=== PATIENT | female | born 1935 | race Caucasian/White ===

== ENCOUNTER 2016-10-03 18:39 | Emergency (ER) | payer MEDICARE, OTHER ==
[~2016-10-03] VITALS: Ht 160 cm; Wt 70.9 kg
[~2016-10-03 18:39] MED LIST: ATOR10TA65 PO; IRBE150T19 PO; [UNRECOGNIZED DRUG - CODE] MC
[2016-10-03 19:18] VITALS: Ht 160 cm; Wt 70.9 kg
[2016-10-03] MEDS ORDERED: morphine 4 MG/ML VIAL IV STA (22:15)
[2016-10-03] MEDS ORDERED: DICL50TA11 PO (22:15)
[2016-10-03] MEDS ORDERED: ONDANSETRON 4 MG INJ IV STA (22:15)
[2016-10-03] MEDS ORDERED: SOD CHLORIDE 0.9% 500 ML IV STA (22:15)
[2016-10-03 22:50] LABS: ADD SCAN DIFF NO
[2016-10-03 22:56] LABS: BASOPHILS % 0.3 % (0.0-2.0); EOSINOPHILS % 0.6 % (0.0-7.0); HEMATOCRIT 38.3 % (37.0-47.0); HEMOGLOBIN 12.9 g/dl (12.0-16.0); LYMPHOCYTES # 1.5 10^3/ul (0.8-2.9); LYMPHOCYTES % 22.9 % (15.0-51.0); MEAN CORPUSCULAR HEMOGLOBIN 29.3 pg (29.0-33.0); MEAN CORPUSCULAR HGB CONC 33.7 g/dl (32.0-37.0); MEAN PLATELET VOLUME 10.5 fl (7.4-10.4); MONOCYTE # 0.5 10^3/ul (0.3-0.9); MONOCYTES % 6.8 % (0.0-11.0); NEUTROPHIL # 4.6 10^3/ul (1.6-7.5); NEUTROPHILS % 69.2 % (39.0-77.0); PLATELET COUNT 147 10^3/UL (140-415); RED CELL DISTRIBUTION WIDTH 13.6 % (11.5-14.5); WHITE BLOOD COUNT 6.6 10^3/ul (4.8-10.8)
--- NOTE | 2016-10-03 22:59 | RADRPT ---
PROCEDURE: XR Chest. CLINICAL INDICATION: Chest pain and headache TECHNIQUE: AP Portable chest. COMPARISON: 06/17/2013 chest x-ray FINDINGS: The soft tissues and bones are remarkable for thoracic spondylosis. Multiple EKG leads is superimpos ed over the chest wall. No focal infiltrates, masses, or effusions are noted. The mediastinum and heart are remarkable for normal size heart and mild vascular calcifications of the thoracic aorta.. No pneumothorax is present. IMPRESSION: 1. No radiographic evidence for acute cardiopulmonary disease 2. Mild atherosclerotic vascular disease and normal size heart. RPTAT: HDC .Sejal Marcelino MD, MD Date Time Electronically viewed and signed by .Sejal Marcelino MD, on 10/03/2016 22:59 .C/
[2016-10-03] MEDS ORDERED: hydrALAzine 20 MG INJ IV ONE (23:00)
[2016-10-03 23:06] LABS: CHLORIDE 96 mmol/L (97-110); POTASSIUM 4.2 mmol/L (3.5-5.1); SODIUM 138 mmol/L (135-144)
[2016-10-03 23:09] LABS: ANION GAP 16 (8-16); BLOOD UREA NITROGEN 15 mg/dl (7-20); CARBON DIOXIDE 30 mmol/L (21-31); CREATININE 0.69 mg/dl (0.44-1.00); GLUCOSE 124 mg/dl (70-220)
[2016-10-03 23:10] LABS: CALCIUM 9.5 mg/dl (8.4-10.2)
[2016-10-03 23:11] LABS: INR 1.09; PROTIME 14.1 Sec (12.2-14.2); PT RATIO 1.1
[2016-10-03 23:12] LABS: PARTIAL THROMBOPLASTIN TIME 27.8 Sec (25.0-35.0)
[2016-10-03 23:22] LABS: TROPONIN-I < 0.012 ng/ml (0.00-0.12)
--- NOTE | 2016-10-04 00:38 | ERD ---
ER Documentation Chief Complaint Date/Time DATE: 10/04/16 TIME: 00:36 Chief Complaint hx htn and took meds but continues to have high bp and headache HPI Female comes in with elevated blood pressure. She says she has also had a mild headache. No nausea no vomiting no chills. Nonfocal neurological. No other current complaints. ROS All systems reviewed and are negative except as per history of present illness. Medications Home Meds Reported Medications Diclofenac Sodium* (Diclofenac Sodium*) 50 Mg Tablet.dr, 50 MG PO DAILY, #30 TAB 10/03/16 Irbesartan* (Avapro*) 150 Mg Tablet, 150 MG PO BID 06/17/13 Atorvastatin Calcium (Atorvastatin Calcium) 10 Mg Tab, 10 PO DAILY 06/17/13 Discontinued Reported Medications Diclofenac Sodium (Diclofenac Sodium) 25 Gm Powder, 50 MG MC DAILY 06/17/13 Allergies Allergies: Coded Allergies: No Known Allergy (Unverified , 10/03/16) PMhx/Soc History of Surgery: Yes (LEFT BENIGN TUMOR REMOVAL) Anesthesia Reaction: No Hx Neurological Disorder: No Hx Respiratory Disorders: No Hx Psychiatric Problems: No Hx Alcohol Use: No Hx Substance Use: No Hx Tobacco Use: No Smoking Status: Never smoker Physical Exam Vitals Vital Signs Date Time Temp Pulse Resp B/P Pulse Ox O2 Delivery O2 Flow Rate FiO2 10/03/16 23:30 97.0 70 20 128/65 95 Room Air 10/03/16 22:12 69 20 158/82 95 Room Air 10/03/16 19:18 96.8 66 16 198/86 97 Physical Exam Const: [] Head: Atraumatic Eyes: Normal Conjunctiva ENT: Normal External Ears, Nose and Mouth. Neck: Full range of motion..~ No meningismus. Resp: Clear to auscultation bilaterally Cardio: Regular rate and rhythm, no murmurs Abd: Soft, non tender, non distended. Normal bowel sounds Skin: No petechiae or rashes Back: No midline or flank tenderness Ext: No cyanosis, or edema Neur: Awake and alert Psych: Normal Mood and Affect Result Diagram: 10/03/16221510/03/162215 Results 24 hrs Laboratory Tests Test 10/03/16 22:16 Activated Partial Thromboplast Time 27.8Sec Anion Gap 16 Basophils # 0.010^3/ul Basophils % 0.3% Blood Urea Nitrogen 15mg/dl Calcium Level 9.5mg/dl Carbon Dioxide Level 30mmol/L Chloride Level 96mmol/L Creatinine 0.69mg/dl Eosinophils # 0.010^3/ul Eosinophils % 0.6% Glucose Level 124mg/dl Hematocrit 38.3% Hemoglobin 12.9g/dl INR International Normalized Ratio 1.09 Lymphocytes # 1.510^3/ul Lymphocytes % 22.9% Mean Corpuscular Hemoglobin 29.3pg Mean Corpuscular Hemoglobin Concent 33.7g/dl Mean Corpuscular Volume 87.0fl Mean Platelet Volume 10.5fl Monocytes # 0.510^3/ul Monocytes % 6.8% Neutrophils # 4.610^3/ul Neutrophils % 69.2% Nucleated Red Blood Cells # 0.010^3/ul Nucleated Red Blood Cells % 0.0/100WBC Platelet Count 73591^3/UL Potassium Level 4.2mmol/L Prothrombin Time 14.1Sec Prothrombin Time Ratio 1.1 Red Blood Count 4.4010^6/ul Red Cell Distribution Width 13.6% Sodium Level 138mmol/L Troponin I < 0.012ng/ml White Blood Count 6.610^3/ul Current Medications Medications (Trade) Dose Ordered Sig/Severo Route PRN Reason Start Time Stop Time Status Last Admin Dose Admin Sodium Chloride (NS) 500 ml @ 500 mls/hr Q1H STAT IV 10/03/16 22:15 10/03/16 23:14 DC 10/03/16 22:39 Ondansetron HCl (Zofran Inj) 4 mg ONCE STAT IV 10/03/16 22:15 10/03/16 22:18 DC 10/03/16 22:39 Morphine Sulfate (morphine) 4 mg ONCE STAT IV 10/03/16 22:15 10/03/16 22:18 DC 10/03/16 22:40 Hydralazine HCl (Apresoline) 20 mg ONCE ONCE IV 10/03/16 23:00 10/03/16 23:01 DC 10/03/16 23:13 Procedures/MDM EKG: Rate/Rhythm: Normal Sinus Rhythm QRS, ST, T-waves: No changes consistent w/ acute ischemia Impression: No evidence of ischemia or arrhythmia Chest X-ray 1V Interpreted by me: Soft Tissue: No acute abnormalities Bones: No acute abnormalities Mediastinum/Cardiac Silhouette/Lungs: No acute abnormalities Patient's blood pressure was elevated (>120/80) but appears stable without evidence of hypertension emergency or urgency. The patient was counseled about the risks of hypertension and urged to pursue outpatient monitoring and therapy within a week with their primary care physician. Patient's blood pressure normalized and feels much better. She will be discharged with hydralazine. Follow-up with PCP. Departure Diagnosis: Primary Impression: Hypertension Hypertension type: essential hypertension Qualified Code: I10 - Essential hypertension Condition: Stable OMERO LO Oct 04, 2016 00:38
[2016-10-04] MEDS ORDERED: APR50 PO (00:39)
[2016-10-04 00:59] VITALS: BP 110/62; PULSE 70; RESP 17; TEMP 97.8
== END 2016-10-04 01:00 | disposition home or self-care (01) ==
LOC: E/R 18:39
DX: I10 Essential (primary) hypertension (principal); R07.9 Chest pain, unspecified
CPT/HCPCS: 36415; 71010; 80048; 84484; 85025; 85610; 85730; 96374; 96375; 99285; J0360; J2270; J2405; J7040